=== PATIENT | female | born 1955 | race Caucasian/White ===

== ENCOUNTER → 2024-02-21 06:25 | Day surgery (SDC) | payer MEDICARE, OTHER, SELFPAY | LOC: GI 06:25 | PROVIDERS: ATTENDING PHYSICIAN Internal Medicine Gastroenterology; FAMILY PHYSICIAN Internal Medicine | DX: Z12.11 Encounter for screening for malignant neoplasm of colon (principal); D12.0 Benign neoplasm of cecum; D12.2 Benign neoplasm of ascending colon; D12.3 Benign neoplasm of transverse colon; K63.5 Polyp of colon; K64.0 First degree hemorrhoids; Z83.719 Family history of colon polyps, unspecified | CPT/HCPCS: 45385; 45380; 88305 ==

== ENCOUNTER → 2024-06-10 11:41 | Outpatient (REF) | payer MEDICARE, OTHER, SELFPAY | LOC: WDC 11:41 | PROVIDERS: ATTENDING PHYSICIAN Obstetrics & Gynecology Gynecology; FAMILY PHYSICIAN Internal Medicine | DX: Z12.31 Encounter for screening mammogram for malignant neoplasm of breast (principal) | CPT/HCPCS: 77063; 77067 ==

== ENCOUNTER → 2024-06-12 07:52 | Outpatient (REF) | payer MEDICARE, OTHER, SELFPAY | LOC: RAD 07:52 | PROVIDERS: ATTENDING PHYSICIAN Obstetrics & Gynecology Gynecology; FAMILY PHYSICIAN Internal Medicine | DX: M85.89 Other specified disorders of bone density and structure, multiple sites (principal) | CPT/HCPCS: 77080 ==

== ENCOUNTER → 2024-06-22 06:34 | Outpatient (REF) | payer MEDICARE, OTHER, SELFPAY | LOC: MRI 06:34 | PROVIDERS: ATTENDING PHYSICIAN Orthopaedic Surgery; FAMILY PHYSICIAN Internal Medicine | DX: M76.71 Peroneal tendinitis, right leg (principal); M25.571 Pain in right ankle and joints of right foot | CPT/HCPCS: 73721 ==

== ENCOUNTER → 2024-12-29 14:36 | Outpatient (REF) | payer MEDICARE, OTHER, SELFPAY | LOC: RAD 14:36 | PROVIDERS: ATTENDING PHYSICIAN Internal Medicine | DX: M25.551 Pain in right hip (principal) | CPT/HCPCS: 73502 ==

== ENCOUNTER → 2025-05-26 14:41 | Outpatient (REF) | payer MEDICARE, OTHER, SELFPAY | LOC: HWRCS 14:41 | PROVIDERS: ATTENDING PHYSICIAN Internal Medicine | DX: Q25.40 Congenital malformation of aorta unspecified (principal) | CPT/HCPCS: 93306 ==

== ENCOUNTER → 2025-07-07 16:16 | Outpatient (REF) | payer MEDICARE, OTHER, SELFPAY | LOC: WDC 16:16 | PROVIDERS: ATTENDING PHYSICIAN Obstetrics & Gynecology Gynecology; FAMILY PHYSICIAN Internal Medicine | DX: Z12.31 Encounter for screening mammogram for malignant neoplasm of breast (principal) | CPT/HCPCS: 77063; 77067 ==